=== PATIENT | male | born 1970 | race Caucasian/White ===

== ENCOUNTER 2016-04-18 11:28 | Emergency (ER) | payer OTHER ==
[~2016-04-18] VITALS: Ht 172.7 cm; Wt 82.1 kg
[~2016-04-18 11:28] MED LIST: ADVAIR 500/501 DISK IH; ALBUTEROL SULF8.5 GM IH; AMARYL2 MG PO; AMERGE2.5 MG PO; AUGMENTIN875 MG PO; BACTRIM,SEPT1 TABLET PO; BENADRYL25 MG PO; CADUET 10/801 TABLET PO; CYANOCOBALAM1000 MCG PO; CYMBALTA60 MG PO; FLEXERIL5 MG PO; GLUCOPHAGE1000 MG; GLUCOPHAGE1000 MG PO; GUAIFENESIN WI120 ML PO; LANTUS 10100 UNITS/; LANTUS 3 M100 UNITS1 SC; LEVAQUIN500 MG PO; LEVAQUIN750 MG PO; LOMOTIL TABLET1 EACH; LOMOTIL TABLET1 EACH PO; LOTENSIN20 MG PO; MEDROL DOSEPAK4 MG PO; METFORMIN HCL500 MG PO; MOTRIN800 MG PO; NEXIUM40 MG PO; NOVOLOG PE100 UNITS/ SC; OXYCODONE HCL10 MG PO; PERIDEX1 ML MM; PREDNISONE20 MG PO; PREDNISONE50 MG PO; PROAIR HFA8.5 GM IH; PROMETHAZINE HC25 M1 PO; PROMETHAZINE-C120 ML PO; PROVENTIL; PROVENTIL HFA6.7 GM IH; PROVENTIL,2.5 MG/3 M IH; REGLAN10 MG PO; REQUIP0.5 MG PO; SILVADENE20 GM TP; SINGULAIR10 MG; SINGULAIR10 MG PO; SPIRIVA1 INHALATI IH; TOPAMAX; TRICOR145 MG PO; VENTOLIN HFA18 GM; XANAX2 MG PO; ZITHROMAX Z-PA250 MG PO; ZOFRAN ODT4 MG PO; ZOFRAN4 MG PO
[2016-04-18] MEDS ORDERED: ZITHROMAX Z-PA250 MG PO (13:01)
[2016-04-18] MEDS ORDERED: PREDNISONE50 MG PO (13:01)
[2016-04-18 13:28] VITALS: BP 145/86
== END 2016-04-18 13:36 | disposition home or self-care (01) ==
LOC: EME → EDBD 11:28 → EME 13:36
DX: J45.901 Unspecified asthma with (acute) exacerbation (principal); E78.5 Hyperlipidemia, unspecified; E11.9 Type 2 diabetes mellitus without complications; I10 Essential (primary) hypertension; Z88.6 Allergy status to analgesic agent; Z88.0 Allergy status to penicillin
CPT/HCPCS: 71010; 99281; 99284; J3105; J7512; J7644

== ENCOUNTER 2016-07-01 14:30 | Emergency (ER) | payer OTHER ==
[~2016-07-01] VITALS: Ht 172.7 cm; Wt 81.0 kg
[2016-07-01] MEDS ORDERED: PREDNISONE50 MG PO (16:34)
[2016-07-01] MEDS ORDERED: AUGMENTIN875 MG PO (16:34)
[2016-07-01 17:34] VITALS: BP 115/87
== END 2016-07-01 17:33 | disposition home or self-care (01) ==
LOC: RME 14:30 → EME 14:30 → RME 17:33
DX: J45.901 Unspecified asthma with (acute) exacerbation (principal); J40 Bronchitis, not specified as acute or chronic; G89.29 Other chronic pain; E11.9 Type 2 diabetes mellitus without complications; E78.5 Hyperlipidemia, unspecified; I10 Essential (primary) hypertension; K21.9 Gastro-esophageal reflux disease without esophagitis; Z79.4 Long term (current) use of insulin; Z79.84 Long term (current) use of oral hypoglycemic drugs
CPT/HCPCS: 71020; 93005; 94640; 99281; 99284; J7512

== ENCOUNTER 2017-05-06 14:10 | Emergency (ER) | payer OTHER ==
[~2017-05-06] VITALS: Ht 170.2 cm; Wt 83.1 kg
[2017-05-06 15:25] LABS: HEMATOCRIT 40.1 % (38.0-50.0); HEMOGLOBIN 14.6 G/DL (12.5-16.6); MCH 31.7 PG (29.0-34.0); MCHC 36.4 G/DL (30.0-36.0); PLATELET COUNT 154 K/uL (156-360); RBC DIS.WIDTH-CV 11.7 % (11.8-14.6); RBC DIS.WIDTH-SD 37.3 % (39-53); RED BLOOD COUNT 4.61 M/uL (4.00-5.50); WHITE BLOOD COUNT 7.2 K/uL (4.1-10.2)
[2017-05-06 15:47] LABS: ALBUMIN 3.6 g/dL (3.2-4.8); CHLORIDE 99 mEq/L (99-109); POTASSIUM 3.4 mEq/L (3.7-5.4); SODIUM 137 mEq/L (136-147)
[2017-05-06 15:50] LABS: TOTAL PROTEIN 5.9 g/dL (6.4-8.3)
[2017-05-06 15:52] LABS: GLUCOSE 527 mg/dL (70-99); TOTAL BILIRUBIN 0.3 mg/dL (0.0-1.0)
[2017-05-06 15:53] LABS: ALKALINE PHOSPHATASE 136 IU/L (3-129); GFR ESTIMATE (CALCULATED) > 59 mL/min/ (58.99-99999)
[2017-05-06 15:54] LABS: UREA NITROGEN (BUN) 15 mg/dL (9-23)
[2017-05-06 15:55] LABS: AST (GOT) 26 IU/L (2-34)
[2017-05-06 15:56] LABS: ALT (GPT) 39 IU/L (3-49)
[2017-05-06 15:57] LABS: LIPASE 69 U/L (1.0-51.0)
[2017-05-06] MEDS ORDERED: PREDNISONE20 MG PO (16:43)
[2017-05-06 17:14] VITALS: BP 123/74
== END 2017-05-06 17:17 | disposition home or self-care (01) ==
LOC: EME 14:10
PROVIDERS: Emergency Medicine
DX: J20.9 Acute bronchitis, unspecified (principal); J45.909 Unspecified asthma, uncomplicated; E11.9 Type 2 diabetes mellitus without complications; I10 Essential (primary) hypertension; E78.5 Hyperlipidemia, unspecified; F32.9 Major depressive disorder, single episode, unspecified; Z79.891 Long term (current) use of opiate analgesic; Z79.4 Long term (current) use of insulin; Z79.84 Long term (current) use of oral hypoglycemic drugs; Z88.0 Allergy status to penicillin; Z88.1 Allergy status to other antibiotic agents; Z88.8 Allergy status to other drugs, medicaments and biological substances
CPT/HCPCS: 71046; 80053; 83690; 85027; 94640; 99202; 99281; 99285; J2765; J7030; J7512; J7644